=== PATIENT | female | born 1995 | race Caucasian/White ===

== ENCOUNTER 2018-09-28 13:15 | Inpatient (IN) ==
[2018-09-28] MEDS ORDERED: OXYTOCIN/DEXTROSE 5%-WATER 30 UNITS/500 ML BAG IV ONE (13:57)
[2018-09-28] MEDS ORDERED: DEXTROSE 5%-LACTATED RINGERS 1,000 ML IV PRN (13:57)
[2018-09-28] MEDS ORDERED: ONDANSETRON 4 MG TAB.RAPDIS PO PRN (13:57)
--- NOTE | 2018-09-28 14:13 | HP ---
Chief Complaint - Chief Complaint Date of Service: 09/28/18 Time of Service: 13:59 Chief Complaint: Induction of labor History of Present Illness: 23 yo at 37 1/7 weeks presents to L&D for medical induction of labor due to GHTN. Patient denies DENTON, visual changes, or epigastric pain. Admits to increase LE edema - R/L since this am. This complicated by anemia, GHTN, and early UTI - tx'd. Rh positive Rubella Non-immune GBS negative Medical History (Updated 09/22/18 @ 16:30 by Dylon Bowie DO) (Acute) 5.2 w gestational sac on Feb 18, 2018, viability not certain. History of ovarian cyst Onset Date: ~11/2017 left UTI (urinary tract infection) Onset Date: ~02/08/18 Has received influenza vaccination in current influenza season (Resolved) Mollusca contagiosa Onset Date: ~2014 Ovarian cyst (Resolved) Seasonal allergies Onset Date: Unknown Surgical History: Surgical History (Updated 09/22/18 @ 16:30 by Dylon Bowie DO) History of esophagogastroduodenoscopy (EGD) (Resolved) Onset Date: ~02/08/18 History of esophagogastroduodenoscopy (EGD) Onset Date: ~02/08/18 History of tonsillectomy Onset Date: Unknown age 5 [place] teeth extracted Onset Date: Unknown age 14 Family History: Family History (Updated 02/21/18 @ 09:29 by Etelvina Poe RN) Grandfather , maternal Leukemia Grandmother Hypertension Hyperlipemia maternal Mother Alive and well Father Alive and well Social History: (Last Reviewed 09/28/18 @ 14:04 by Dylon Bowie DO) Social History: correction: No Marital status: lives independently: No household members: spouse current occupational status: employed 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 Highest education level completed: some college, no degree Sexually Active: No Service: No Tobacco: Smoking Status: Never smoker second hand exposure: No Alcohol: alcohol intake: former alcohol intake frequency: a few times a month Substance Use: substance use type: does not use Dietary Habits: caffeine: No Exercise: Physical activity functional status: normal ROM and activity frequency: 3-4 times per week Review Of Systems (GEN) - Review of Systems Generalized/Overall Review: Present: No Symptoms Reported EENTM: Present: No Symptoms Reported Respiratory: Present: No Symptoms Reported Cardiac: Present: No Symptoms Reported Abdominal: Present: No Symptoms Reported Genitourinary: Present: No Symptoms Reported Musculoskeletal: Present: No Symptoms Reported Neurological: Present: No Symptoms Reported Skin: Present: Rash, Change in Color Endocrine: Present: No Symptoms Reported Immunizations: IMMUNIZATION HX Immunizations Up to Date Yes History of Influenza Vaccine Yes Allergies/Adverse Reactions: Allergies Allergy/AdvReac Type Severity Reaction Status Date / Time No Known Allergies Allergy Verified 09/28/18 12:04 Home Medications: HOME MEDICATIONS ranitidine 75 mg tablet 75 mg PO DAILY PRN 09/22/18 [Last Taken Unknown] Vits96/Iron Fum/Folic [ S] 1 tab PO DAILY 09/28/18 [Last Taken 09/28/18 08:00] Exam - Exam Vital Signs: Vital Signs - Last Taken Temp 36.3 C 09/28/18 13:52 Pulse 100 09/28/18 13:52 Resp 16 09/28/18 13:52 BP 128/84 09/28/18 13:52 Pulse Ox 98 09/28/18 13:52 Constitutional: Present: Alert, Oriented x3, Cooperative, No distress ENT Exam: Present: hearing grossly normal Neck: Present: non-tender. Absent: thyromegaly Breasts: Present: Exam deferred Respiratory: Present: lungs clear, no respiratory distress Cardiovascular/Chest: Present: normal peripheral pulses, regular rate, rhythm Abdomen: Present: soft, nontender, no rebound tenderness, other - gravid /Rectal: Present: Other - cervix 1/50/-2 Extremity: Present: no calf tenderness, lower extremity edema - Right with red band streak on back of lower calf Skin Exam: Present: warm/dry, no cyanosis, mottled - b/l LE, other - purple foot Lymphatic: Present: no adenopathy Neurologic: Present: alert, normal mood/affect, oriented x 3 Appearance: Present: appropriate appearance, appropriate insight Eye contact: Present: cooperative Thoughts: Present: normal thought pattern Diagnostic Studies: NST reactive Plt 127 Pr/Cr ratio 254 Assessment/Plan - Assessment/Plan (1) Gestational HTN Assessment: Admit for induction of labor. Epidural PRN. Preeclampsia precautions. 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
[2018-09-28 16:07] LABS: Cocaine Ur Negative (NEGATIVE); Urine Barbiturate Negative (NEGATIVE); Urine Benzodiazepines Negative (NEGATIVE); Urine Opiates Negative (NEGATIVE); Urine PCP Negative (NEGATIVE); Urine THC Negative (NEGATIVE)
[2018-09-28] MEDS ORDERED: ACETAMINOPHEN 500 MG TABLET PO ONE (18:30)
[2018-09-29] MEDS ORDERED: MISOPROSTOL 100 MCG TABLET VG ONE (03:00)
[2018-09-29] MEDS ORDERED: MISOPROSTOL 100 MCG TABLET ONE (04:15)
--- NOTE | 2018-09-29 07:04 | PN ---
Progess Note - Interim Date: 09/29/18 Time: 06:58 Narrative: 09/29/18 06:59 Patient rating her contractions as mild Vital signs stable. Status post 2 doses of Cytotec-last dose at 4 AM. FHT: 140 baseline, reassuring contractions irregular Cervix: 3-4/50/-2, SROM around 6 AM during vaginal exam- clear Impression: Intrauterine at 37 weeks. Induction of labor for gestational hypertension. Plan: Continue present plan
--- NOTE | 2018-09-29 09:39 | PN ---
Progess Note - Interim Date: 09/29/18 Time: 09:38 Narrative: 09/29/18 09:38 09/29/18 09:32 Patient starting to become more uncomfortable with contractions Vital signs stable. Pitocin at 6 mu/min. FHT: 150 baseline, reassuring contractions q 2-3 min-but difficult to assess Cervix: 4/80/-2 Impression: Intrauterine at 37 2/7 weeks induction of labor for gestational hypertension Plan: Continue present plan
[2018-09-29] MEDS: RINGER'S SOLUTION,LACTATED 1,000 ML IV ONE ×2 (11:33→16:59)
[2018-09-29] MEDS ORDERED: ONDANSETRON HCL/PF 2 MG/ML VIAL IV PRN (12:29)
[2018-09-29] MEDS ORDERED: BUPIVACAINE HCL/0.9 % NACL/PF 250 ML EP PRN (12:29)
[2018-09-29] MEDS ORDERED: NALOXONE HCL 1 MG/1 ML SYRG IV PRN (12:29)
[2018-09-29] MEDS ORDERED: fentaNYL CITRATE/PF 50 MCG/ML AMPUL IT SCH (12:30)
[2018-09-29] MEDS ORDERED: LIDOCAINE HCL 50 ML VIAL ONE (12:51)
--- NOTE | 2018-09-29 13:29 | ANES ---
Anesthesia Pre Procedure Eval Vitals/Labs: Last Vital Signs Temp 36.4 C 09/29/18 13:13 Pulse 86 09/29/18 13:13 Resp 18 09/29/18 13:13 BP 123/71 09/29/18 13:13 Pulse Ox 100 09/29/18 13:13 HOME MEDICATIONS ranitidine 75 mg tablet 75 mg PO DAILY PRN 09/22/18 [Last Taken Unknown] Vits96/Iron Fum/Folic [ S] 1 tab PO DAILY 09/28/18 [Last Taken 09/28/18 08:00] Allergies/Adverse Reactions: Allergies Allergy/AdvReac Type Severity Reaction Status Date / Time No Known Allergies Allergy Verified 09/28/18 12:04 - Planned Procedure Planned Procedure: INDUCTION OF LABOR Medical History (Updated 09/28/18 @ 14:12 by Dylon Bowie DO) (Acute) 5.2 w gestational sac on Feb 18, 2018, viability not certain. History of ovarian cyst Onset Date: ~11/2017 left UTI (urinary tract infection) Onset Date: ~02/08/18 Has received influenza vaccination in current influenza season (Resolved) Mollusca contagiosa Onset Date: ~2014 Ovarian cyst (Resolved) Seasonal allergies Onset Date: Unknown Surgical History (Updated 09/28/18 @ 14:12 by Dylon Bowie DO) History of esophagogastroduodenoscopy (EGD) (Resolved) Onset Date: ~02/08/18 History of esophagogastroduodenoscopy (EGD) Onset Date: ~02/08/18 History of tonsillectomy Onset Date: Unknown age 5 [place] teeth extracted Onset Date: Unknown age 14 Family History (Updated 02/21/18 @ 09:29 by Etelvina Poe RN) Grandfather , maternal Leukemia Grandmother Hypertension Hyperlipemia maternal Mother Alive and well Father Alive and well - Family Anesthesia History Family History:: no untoward family reactions to anesthesia - Airway/Neck/Teeth Within Normal Limits:: Yes Teeth Condition: intact Neck Exam: full range of motion Mallampatti Score: 2 Thyromental (T-M) distance: > 6 cm Mandibulo Hyoid distance: > 3 cm - Respiratory Respiratory Physical: lungs clear Smoking Status: Never smoker Sleep Apnea currently treated: No Sleep Apnea by current assessment: No - Cardiovascular Tolerate Activity: Good Heart Sounds: S1 & S2, Regular - Anesthesia Assessment and Plan ASA Class: PS, II, E Anesthesia Type Plan: Epidural Planned difficult intubation/equipment available: No
--- NOTE | 2018-09-29 13:29 | ANES ---
Post Anesthesia Discharge - Transfer of Care Transfer of Care handoff given to nurse: Yes - Anesthesia Post Op Note Anesthesia Post Op Note: Care transferred to OB RN
--- NOTE | 2018-09-29 13:30 | ANES ---
Post Anesthesia Assessment - Vital Signs Vitals: Last Vital Signs Temp 36.4 C 09/29/18 13:13 Pulse 86 09/29/18 13:13 Resp 18 09/29/18 13:13 BP 123/71 09/29/18 13:13 Pulse Ox 100 09/29/18 13:13 Airway Patency: Normal - Mental Status Level Of Consciousness: Awake - Pain Level Pain Score: 1 - N/V Assessment Nausea/Vomiting Presence: None Dehydration:: No
--- NOTE | 2018-09-29 13:32 | ANES ---
Anesthesia Procedure Note Procedure Note: ANESTHESIA PROCEDURE NOTE Date of Procedure: 09/29/2018 Time of procedure: 1300. Performed by: Delfino Conner CRNA Pickling Solution Maker: None. Preprocedure diagnosis: Active labor. Post procedure diagnosis: Same. Procedure: Insertion of labor epidural. 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 Findings: See below. Details of the procedure: The patient was placed in a sitting position. Back was prepped with DuraPrep. Patient was then draped in a sterile fashion. Lidocaine 1% was infiltrated to the skin and subcutaneous tissues at the level of the L3 4 interspace. The epidural space was identified using a 18-gauge Tuohy needle with [id number] technique. 20 mcg fentanyl was given intrathecally using a 27 ga. spinal needle. Epidural catheter was inserted without difficulty. Negative test dose was elicited using 5 mL of 1.5% preservative-free lidocaine plus epinephrine 1 200,000. The epidural catheter was then taped and secured in place. EBL: Minimal. Fluids: N/A. Specimen: N/A. Post procedure condition: The patient tolerated the procedure well. No complications were noted. Thank you for this consultation. Ng CRNA
--- NOTE | 2018-09-29 16:59 | PN ---
Progess Note - Interim Date: 09/29/18 Time: 16:57 Narrative: 09/29/18 16:57 Patient comfortable with epidural Vital signs stable. Occasional elevated blood pressure FHT: 140 baseline, reassuring contractions q 1-2 min Cervix: 8-9/90/-1 Impression: Intrauterine at 37 2/7 weeks, induction of labor for gestational hypertension Plan: Anticipate normal spontaneous vaginal delivery within the next couple hours
[2018-09-29] MEDS ORDERED: OXYTOCIN/DEXTROSE 5%-WATER 30 UNITS/500 ML BAG IV ONE (22:15)
[2018-09-29] MEDS ORDERED: BENZOCAINE/MENTHOL 81 SPRAY CAN TP PRN (22:15)
[2018-09-29] MEDS ORDERED: SENNOSIDES 8.6 MG TABLET PO PRN (22:15)
[2018-09-29] MEDS ORDERED: GLYCERIN/WITCH HAZEL LEAF 40 APPL BOX TP PRN (22:15)
[2018-09-29] MEDS ORDERED: BISACODYL 10 MG SUPP.RECT RC PRN (22:15)
[2018-09-29] MEDS ORDERED: HYDROCORTISONE 30 APPL TUBE TP PRN (22:15)
--- NOTE | 2018-09-29 22:18 | OR ---
Operative Report - Dictated Report Narrative: Spontaneous vaginal delivery of viable male at 2147 on 09/29/2018 with Apgars 8 9, weighing 3344 g in NIRMALA position with tight cord draped over the neck and shoulders x1. [Cord clamping delayed approximately 1 minute] Placenta delivered [complete, intact, with three vessel cord] Estimated blood loss: [less than 50 ml] Anesthesia: [epidural] Lacerations: Second-degree vaginal laceration repaired with 3-0 Vicryl Rapide History for MU History for Definition: * The number of deliveries resulting in a live the patient experienced prior to current hospitalization * The previous delivery of live twins or any live multiple gestation is considered one live event. *If primagravida or nulliparous is documented select zero for the number of previous live births. Live Events: Live Events: 0
[2018-09-30] MEDS: IBUPROFEN 800 MG TABLET PO PRN ×4 (00:15→20:59)
[2018-09-30] MEDS: oxyCODONE HCL/ACETAMINOPHEN 1 TAB TABLET PO PRN ×3 (00:16→19:09)
[2018-09-30] MEDS: DOCUSATE SODIUM 100 MG CAPSULE PO SCH ×4 (00:19→20:59)
--- NOTE | 2018-09-30 08:49 | PN ---
Subjective - Date and Time Seen Date: 09/30/18 Time: 08:48 Objective - Vitals Vitals: Last Vital Signs Temp 36.3 C 09/30/18 07:30 Pulse 66 09/30/18 07:30 Resp 14 09/30/18 07:30 BP 117/71 09/30/18 07:30 Pulse Ox 97 09/30/18 07:30 Patient denies complaints. Breast-feeding well Lochia wnl abdomen - soft, nontender Uterus -firm, at umbilicus - 1 no calf tenderness Impression: day #1 - s/p spontaneous vaginal delivery. 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
[2018-09-30] MEDS: PRENATAL VITS96/IRON FUM/FOLIC 1 TAB TABLET PO SCH (11:59)
[2018-10-01 06:51] VITALS: BP 117/71
[2018-10-01] MEDS: IBUPROFEN 800 MG TABLET PO PRN (08:25)
[2018-10-01] MEDS: PRENATAL VITS96/IRON FUM/FOLIC 1 TAB TABLET PO SCH (08:25)
[2018-10-01] MEDS: DOCUSATE SODIUM 100 MG CAPSULE PO SCH (08:25)
--- NOTE | 2018-10-01 09:29 | PN ---
Subjective - Date and Time Seen Date: 10/01/18 Time: 09:27 Subjective Narrative: Patient without complaints Objective Objective Narrative: See vitals signs - Review of Systems Generalized/Overall Review: Reports: No Symptoms Reported Misc: All systems neg except as marked - Vitals Vitals: Last Vital Signs Temp 36.3 C 10/01/18 06:49 Pulse 83 10/01/18 06:49 Resp 14 10/01/18 06:49 BP 117/71 10/01/18 06:49 Pulse Ox 97 10/01/18 06:49 - Exam Constitutional: Present: Alert, Oriented x3, Cooperative Abdomen: Present: soft, nontender, nondistended Extremity: Present: non-tender, no calf tenderness Skin Exam: Present: normal color, warm/dry, no cyanosis Appearance: Present: appropriate appearance Eye contact: Present: cooperative Thoughts: Present: normal thought pattern Cauti Physician Documentation - Urinary Catheter Management Urethral (Guardado) Urethral Indwelling: No Date of Insertion: 09/29/18 Time of Insertion: 12:30 Assessment/Plan Plan Narrative: PPD 2 s/p Doing well Discharge home
== END 2018-10-01 13:30 | disposition home or self-care (01) | DRG 807 ==
LOC: OB 13:15
PROVIDERS: ADMIT Obstetrics & Gynecology; ATTEND Obstetrics & Gynecology
CPT/HCPCS: 59025; 80307; 88307; 93971